=== PATIENT | female | born 1985 | race Caucasian/White ===

== ENCOUNTER 2018-09-17 15:39 | Emergency (ER) | payer BC ==
[2018-09-17 15:45] VITALS: BP 161/88; PULSE 82; RESP 18; TEMP 98.4
[2018-09-17] MEDS ORDERED: KETOROLAC 60 MG/2 ML VIAL IM STA (16:08)
--- NOTE | 2018-09-17 16:31 | XR ---
PROCEDURE: XR shoulder complete RT - 4V DATE AND TIME: 09/17/2018 4:17 PM CLINICAL INDICATION: PHH; Pain TECHNIQUE: Department protocol COMPARISON: None FINDINGS: Just 2 mm superficial to the greater tuberosity is a 2 cm x 1 cm x 0.3 cm donald of bone, c onsistent with greater tuberosity avulsion injury with unknown chronicity. No other candidate for fracture. The glenohumeral joint and acromioclavicular joint are congruent. Th e bones and joints are otherwise unremarkable. The soft tissues are unremarkable. No incidental findings. IMPRESSION: 2 cm x 1 cm x 0.3 cm donald of bone, consistent with greater tuberosity avulsion injury.
--- NOTE | 2018-09-17 16:57 | ED ---
General Adult HPI - General Chief complaint: Extremity Injury, Upper Stated complaint: Arm injury Time Seen by Provider: 09/17/18 15:53 Source: patient, RN notes reviewed, old records reviewed Mode of arrival: ambulatory Limitations: no limitations - History of Present Illness Initial comments: 31-year-old female patient presents to ED approximately 2 weeks of right shoulder pain. Patient was that she was at work approximately 2 to when she slipped, she flailed her right arm above her head. Patient did not fall. Patient forces since then she has had pain on the anterior aspect of her right shoulder. Patient was additionally has pain with range of motion. Patient denies any other complaints. Patient denies any chest pain shortness of breath abdominal pain nausea vomiting diarrhea. Systemic: Pt denies fatigue, fever/chills, rash. Pt denies weakness, night sweats, weight loss. Neuro: Pt denies headache, visual disturbances, syncope or pre-syncope. HEENT: Pt denies ocular discharge or irritation, otalgia, rhinorrhea, pharyngitis or notable lymphadenopathy. Cardiopulmonary: Pt denies chest pain, SOB, heart palpitations, dyspnea on exert ion. Abdominal/GI: Pt denies abdominal pain, n/v/d. : Pt denies dysuria, burning w/ urination, frequency/urgency. Denies new onset urinary or bowel incontinence. MSK: Pt denies loss of strength or function in extremities. Neuro: Pt denies new onset weakness, paresthesias. - Related Data Previous Rx's Medication Instructions Recorded Ibuprofen [Motrin] 600 mg PO Q6HR PRN #40 day 09/17/18 Allergies Allergy/AdvReac Type Severity Reaction Status Date / Time No Known Allergies Allergy Verified 09/17/18 15:45 Review of Systems ROS Statement: Those systems with pertinent positive or pertinent negative responses have been documented in the HPI. ROS Other: All systems not noted in ROS Statement are negative. Past Medical History Past Medical History: No Reported History History of Any Multi-Drug Resistant Organisms: None Reported Past Surgical History: No Surgical Hx Reported Past Psychological History: Depression Smoking Status: Current every day smoker Past Alcohol Use History: Occasional Past Drug Use History: Marijuana General Exam - General Exam Comments Initial Comments: Constitutional: NAD, AOX3, Pt has pleasant affect. HEENT: NC/AT, trachea midline, neck supple, no lymphadenopathy. Posterior pharynx non erythematous, without exudates. External ears appear normal, without discharge. Mucous membranes moist. Eyes PERRLA, EOM intact. There is no scleral icterus. No pallor noted. Cardiopulmonary: RRR, no murmurs, rubs or gallops, no JVD noted. Lungs CTAB in anterior and posterior calderon. No peripheral edema. Abdominal exam: Abdomen soft and non-distended. Abdomen non-tender to palpation in all 4 quadrants. Bowel sounds active in LLQ. No hepatosplenomegaly. No ecchymosis Neuro: CN II-XII grossly intact. No nuchal rigidity. MSK: Anterior right shoulder mildly tender to palpation. No ecchymoses. Painful arc positive. And she can test positive. Strength and biceps triceps identified. Neurovascularly intact. Radial pulse +2. Patient placed in sling. No posterior calf tenderness bilaterally, homans sign negative bilaterally. Posterior tibialis and radial pulse +2 bilaterally. Sensation intact in upper and lower extremities. Limitations: no limitations Course Vital Signs 09/17/18 15:42 Temperature 98.4 F Pulse Rate 82 Respiratory 18 Rate Blood Pressure 161/88 O2 Sat by Pulse 99 Oximetry Medical Decision Making - Medical Decision Making 31-year-old female patient presents to ED approximately 2 weeks of right shoulder pain. Patient was that she was at work approximately 2 to when she slipped, she flailed her right arm above her head. Patient did not fall. Patient forces since then she has had pain on the anterior aspect of her right shoulder. Patient was additionally has pain with range of motion. Patient denies any other complaints. Patient denies any chest pain shortness of breath abdominal pain nausea vomiting diarrhea. Patient states that she is not . Patient vital signs stable, afebrile. Physical exam displayed: Anterior right shoulder mildly tender to palpation. No ecchymoses. Painful arc positive. And she can test positive. Strength and biceps triceps identified. Neurovascularly intact. Radial pulse +2. Patient placed in sling. No posterior calf tenderness bilaterally, homans sign negative bilaterally. Posterior tibialis and radial pulse +2 bilaterally. Sensation intact in upper and lower extremities. Plain film of right shoulder displayed greater tuberosity avulsion fracture. Patient to be discharged with orthopedic follow- up. Patient discharged with sling. Patient to return to ER if new symptoms develop or if condition worsens in any way. Case discussed with Dr. Garcia. Disposition Clinical Impression: Greater tuberosity of humerus fracture Disposition: HOME SELF-CARE Condition: Stable Instructions (If sedation given, give patient instructions): Arm Fracture in A dults (ED) Additional Instructions: Patient to adhere to previously discussed treatment plan and will take medication(s) as directed. Patient to follow up with PCP in 1-2 days. Patient to return to ED if symptoms do not improve. Please use ibuprofen as needed for pain. Please follow-up with primary care provider tomorrow. Please call orthopedic consult tomorrow. Please wear sling until follow-up.. Prescriptions: Ibuprofen [Motrin] 600 mg PO Q6HR PRN #40 day PRN Reason: Pain Is patient prescribed a controlled substance at d/c from ED?: No Referrals: None,Stated [Primary Care Provider] - 1-2 days Diaz Barbosa MD [STAFF PHYSICIAN] - 1-2 days
== END 2018-09-17 17:02 | disposition home or self-care (01) ==
LOC: EC 15:39
DX: S42.251A Displaced fracture of greater tuberosity of right humerus, initial encounter for closed fracture (principal); F17.200 Nicotine dependence, unspecified, uncomplicated; W01.0XXA Fall on same level from slipping, tripping and stumbling without subsequent striking against object, initial encounter; Y92.69 Other specified industrial and construction area as the place of occurrence of the external cause; Y99.0 Civilian activity done for income or pay
CPT/HCPCS: 73030; 99284; 96372; J1885